=== PATIENT | female | born 1960 | race Caucasian/White ===

== ENCOUNTER 2017-09-15 10:53 | Inpatient (IN) | payer BC ==
[~2017-09-15] VITALS: Ht 162.6 cm; Wt 90.4 kg
[2017-09-15 15:41] LABS: BASOPHILS # (AUTO) 0.1 X10'3 (0-0.2); BASOPHILS % (AUTO) 1.4 % (0-1); EOSINOPHILS # (AUTO) 0.1 X10'3 (0-0.9); EOSINOPHILS % (AUTO) 2.6 % (0-6); LYMPHOCYTES # (AUTO) 1.9 X10'3 (1.1-4.8); LYMPHOCYTES % (AUTO) 34.1 % (21-51); MEAN CORPUSCULAR HEMOGLOBIN 32.6 PG (27.0-31.0); MEAN CORPUSCULAR HGB CONC 34.5 % (33.0-36.5); MEAN CORPUSCULAR VOLUME 94.4 FL (78-98); MONOCYTES # (AUTO) 0.6 X10'3 (0-0.9); MONOCYTES % (AUTO) 9.9 % (2-12); NEUTROPHILS # (AUTO) 2.9 X10'3 (1.8-7.7); PRE OP HEMATOCRIT 42.1 % (35.0-45.0); PRE OP HEMOGLOBIN 14.6 g/dL (12.0-16.0); PRE OP PLATELET COUNT 267 X10'3 (140-440); RED BLOOD COUNT 4.46 X10'6 (4.20-5.60); RED CELL DISTRIBUTION WIDTH 12.9 % (11.5-14.5)
[2017-09-15 15:57] LABS: ALBUMIN 3.7 G/DL (3.4-5.0); ALBUMIN/GLOBULIN RATIO 1.2 (1.1-1.5); ALKALINE PHOSPHATASE 94 IU/L (46-116); BLOOD UREA NITROGEN 13 MG/DL (7-18); BUN/CREATININE RATIO 15.5 (6.6-38.0); CALCIUM 9.1 MG/DL (8.5-10.1); CHLORIDE 106 MMOL/L (99-107); CREATININE 0.84 MG/DL (0.40-0.90); PRE OP ALT 29 U/L (30-65); PRE OP ANION GAP 8 (8-16); PRE OP AST 15 U/L (10-37); PRE OP BILIRUB, TOTAL 0.4 MG/DL (0.0-1.0); PRE OP GLUCOSE 93 MG/DL (70-104); PRE OP POTASSIUM 3.8 MMOL/L (3.4-5.1); PRE OP SODIUM 142 MMOL/L (135-145); TOTAL CARBON DIOXIDE 27.8 MMOL/L (24-32); TOTAL PROTEIN 6.7 G/DL (6.4-8.2); eGFR 70 ML/MIN
[2017-09-20] MEDS ORDERED: ALBU8.5H8 INH (14:48)
[2017-09-20] MEDS ORDERED: LEVO112T52 PO (14:48)
[2017-09-21] VITALS (19 sets, daily range): BP systolic 90–134; BP diastolic 54–85
[2017-09-21] MEDS ORDERED: ringers solution, lacted 1,000 ML IV SCH ×2 (05:00→09:39)
[2017-09-21] MEDS ORDERED: albuterol 2.5 MG/3 ML nebule NEB ONE (05:30)
[2017-09-21] MEDS ORDERED: gabapentin 300mg capsule PO ONE (05:30)
[2017-09-21] MEDS ORDERED: famotidine 20mg tablet PO ONE (05:30)
[2017-09-21] MEDS ORDERED: Cefazolin 2GM/100ML NS IVPB IV ONE (05:30)
[2017-09-21] MEDS ORDERED: oxyCODONE SR 10mg (sust. release) tab PO ONE (05:30)
[2017-09-21] MEDS ORDERED: tranexamic acid inj. 1,000 MG in normal saline 100ml IV soln 90 ML IV ONE ×2 (05:30→10:30)
[2017-09-21] MEDS ORDERED: metoclopramide 5 mg/ml inj IV ONE (05:30)
[2017-09-21] MEDS ORDERED: acetaminophen 325mg tablet PO ONE (05:30)
[2017-09-21] MEDS ORDERED: vancomycin inj 1,500 MG in normal saline 300ml IV soln IV ONE (05:30)
[2017-09-21] MEDS ORDERED: LIDOcaine 1% (10mg/ml) 2ml vial ONE (07:39)
[2017-09-21] MEDS ORDERED: vancomycin 1,000mg inj ONE (08:45)
[2017-09-21] MEDS ORDERED: ceFAZolin 1000mg inj ONE (08:45)
[2017-09-21] MEDS ORDERED: fentaNYL/PF 50MCG/1 ML 2ML syringe IV PRN ×2 (09:40)
[2017-09-21] MEDS ORDERED: ondansetron/PF 4mg/2ml inj IV PRN ×2 (09:40→13:00)
[2017-09-21] MEDS ORDERED: morphine 4 MG/ML inj SYRINge IV PRN ×2 (09:40)
[2017-09-21] MEDS ORDERED: labetalol 20mg/4ml (5mg/ml) syringe IV PRN (09:40)
[2017-09-21] MEDS ORDERED: hydrALAZINE 20mg/ml inj. IV PRN (09:40)
[2017-09-21] MEDS ORDERED: tetracaine 1% (10mg/ml) pres. free inj. ONE (09:41)
[2017-09-21] MEDS ORDERED: BUPIVAcaine 0.5% inj/PF 30 ml vial ONE (09:42)
[2017-09-21] MEDS ORDERED: MIDAZolam 1mg/ml 10ml vial ONE (09:44)
[2017-09-21] MEDS ORDERED: fentaNYL/PF 50MCG/1 ML 2ML syringe ONE (09:44)
[2017-09-21] MEDS ORDERED: morphine /PF 1mg/ml 10ml inj. ONE (09:44)
[2017-09-21] MEDS ORDERED: propofol inj 20 ML IV ONE ×4 (10:53→11:00)
[2017-09-21] MEDS ORDERED: diphenhydrAMINE 50 mg/ml inj ONE (10:56)
[2017-09-21] MEDS ORDERED: diphenhydrAMINE 50 mg/ml inj IV PRN (11:35)
[2017-09-21] MEDS ORDERED: Thrombin (Bovine) 5,000 unit vial TP ONE (11:40)
[2017-09-21] MEDS ORDERED: calcium chloride 100 MG/1 ML inj IV ONE (11:41)
[2017-09-21] MEDS ORDERED: magnesium hydroxide 30ml (MOM) UD suspension PO PRN (13:00)
[2017-09-21] MEDS ORDERED: acetaminophen 325mg tablet PO PRN (13:00)
[2017-09-21] MEDS ORDERED: HYDROmorphone 1 mg/ml syringe IV PRN ×2 (13:00)
[2017-09-21] MEDS ORDERED: bisacodyl 10mg suppository rectal RC PRN (13:00)
[2017-09-21] MEDS ORDERED: oxyCODONE IR 5mg (immed. release) tablet PO PRN (13:00)
[2017-09-21] MEDS ORDERED: diphenhydrAMINE 25mg capsule PO PRN ×2 (13:00)
[2017-09-21] MEDS: gabapentin 300mg capsule PO SCH ×2 (15:35→20:17)
[2017-09-21] MEDS: potassium cl 20mEq in 1/2 NS 1,000 ML IV SCH ×2 (15:35→20:18)
[2017-09-21] MEDS: acetaminophen 325mg tablet PO SCH ×2 (15:36→20:17)
[2017-09-21] MEDS ORDERED: tranexamic acid inj. 900 MG in normal saline 100ml IV soln 100 ML IV ONE (16:00)
[2017-09-21] MEDS: ceFAZolin 1GM/D5W- ADD-VANTAGE 50 ML IV SCH (17:12)
[2017-09-21] MEDS ORDERED: vancomycin/NS 1 GM ADD-VANTAGE 250 ML IV SCH (20:00)
[2017-09-21] MEDS: ondansetron/PF 4mg/2ml inj IV PRN (20:15)
[2017-09-21] MEDS: oxyCODONE IR 5mg (immed. release) tablet PO PRN (20:15)
[2017-09-21] MEDS: sennosides 8.6mg tablet PO SCH (20:17)
[2017-09-22] MEDS: ceFAZolin 1GM/D5W- ADD-VANTAGE 50 ML IV SCH (00:29)
[2017-09-22] MEDS ORDERED: albuterol 2.5 MG/3 ML nebule NEB PRN (00:55)
[2017-09-22] MEDS: oxyCODONE IR 5mg (immed. release) tablet PO PRN (02:11)
[2017-09-22] MEDS: acetaminophen 325mg tablet PO SCH ×2 (02:11→08:55)
[2017-09-22] MEDS: potassium cl 20mEq in 1/2 NS 1,000 ML IV SCH ×3 (04:59→20:41)
[2017-09-22 05:00] VITALS: BP 114/71
[2017-09-22 05:47] LABS: BASOPHILS % (AUTO) 0.7 % (0-1); EOSINOPHILS # (AUTO) 0.1 X10'3 (0-0.9); EOSINOPHILS % (AUTO) 1.2 % (0-6); HEMATOCRIT 37.1 % (35.0-45.0); HEMOGLOBIN 12.6 g/dl (12.0-16.0); LYMPHOCYTES # (AUTO) 1.2 X10'3 (1.1-4.8); LYMPHOCYTES % (AUTO) 16.1 % (21-51); MEAN CORPUSCULAR HEMOGLOBIN 32.2 PG (27.0-31.0); MEAN CORPUSCULAR HGB CONC 34.1 % (33.0-36.5); MEAN CORPUSCULAR VOLUME 94.5 FL (78-98); MEAN PLATELET VOLUME 8.3 FL (7.4-10.4); MONOCYTES # (AUTO) 0.7 X10'3 (0-0.9); NEUTROPHILS # (AUTO) 5.3 X10'3 (1.8-7.7); PLATELET COUNT 217 X10'3 (140-440); RED BLOOD COUNT 3.93 X10'6 (4.20-5.60); WHITE BLOOD COUNT 7.3 X10'3 (4.5-11.0)
[2017-09-22] MEDS: ondansetron/PF 4mg/2ml inj IV PRN ×2 (07:13→12:57)
[2017-09-22 08:00] VITALS: BP 122/69
[2017-09-22] MEDS: enoxaparin 40mg/0.4ml syringe SQ SCH (08:55)
[2017-09-22] MEDS: gabapentin 300mg capsule PO SCH ×3 (08:55→20:41)
[2017-09-22] MEDS: levoTHYROXINE 112mcg tablet PO SCH (08:55)
[2017-09-22 10:00] VITALS: BP 122/69
[2017-09-22] MEDS ORDERED: oxyCODONE/APAP 10/325mg tablet PO PRN (12:15)
[2017-09-22] MEDS ORDERED: Protein Shake (high protein) 240ml (8oz) cup PO SCH (12:30)
[2017-09-22] MEDS: oxyCODONE/APAP 10/325mg tablet PO PRN ×3 (12:52→20:41)
[2017-09-22 14:00] VITALS: BP 132/70
[2017-09-22 18:00] VITALS: BP 129/69
[2017-09-22] MEDS: celeCOXIB 100mg capsule PO SCH (20:41)
[2017-09-22] MEDS: sennosides 8.6mg tablet PO SCH (21:00)
[2017-09-22 22:00] VITALS: BP 130/46
[2017-09-23] MEDS: oxyCODONE/APAP 10/325mg tablet PO PRN ×2 (04:51→08:34)
[2017-09-23 05:00] VITALS: BP 131/65
[2017-09-23 05:57] LABS: BASOPHILS % (AUTO) 0.3 % (0-1); EOSINOPHILS # (AUTO) 0.1 X10'3 (0-0.9); EOSINOPHILS % (AUTO) 1.2 % (0-6); HEMATOCRIT 33.9 % (35.0-45.0); HEMOGLOBIN 11.7 g/dl (12.0-16.0); LYMPHOCYTES # (AUTO) 1.2 X10'3 (1.1-4.8); LYMPHOCYTES % (AUTO) 14.3 % (21-51); MEAN CORPUSCULAR HEMOGLOBIN 32.7 PG (27.0-31.0); MEAN CORPUSCULAR HGB CONC 34.5 % (33.0-36.5); MEAN CORPUSCULAR VOLUME 94.9 FL (78-98); MEAN PLATELET VOLUME 8.1 FL (7.4-10.4); MONOCYTES # (AUTO) 0.8 X10'3 (0-0.9); MONOCYTES % (AUTO) 9.5 % (2-12); NEUTROPHILS # (AUTO) 6.3 X10'3 (1.8-7.7); NEUTROPHILS % (AUTO) 74.7 % (42-75); PLATELET COUNT 186 X10'3 (140-440); RED BLOOD COUNT 3.58 X10'6 (4.20-5.60); RED CELL DISTRIBUTION WIDTH 12.8 % (11.5-14.5); WHITE BLOOD COUNT 8.4 X10'3 (4.5-11.0)
[2017-09-23] MEDS: potassium cl 20mEq in 1/2 NS 1,000 ML IV SCH (06:40)
[2017-09-23] MEDS: ondansetron/PF 4mg/2ml inj IV PRN (07:08)
[2017-09-23] MEDS: levoTHYROXINE 112mcg tablet PO SCH (08:33)
[2017-09-23] MEDS: gabapentin 300mg capsule PO SCH ×3 (08:34→20:01)
[2017-09-23] MEDS: celeCOXIB 100mg capsule PO SCH ×2 (08:34→20:01)
[2017-09-23] MEDS: enoxaparin 40mg/0.4ml syringe SQ SCH (08:35)
[2017-09-23 10:00] VITALS: BP 116/70
[2017-09-23 18:00] VITALS: BP 132/68
[2017-09-23] MEDS: sennosides 8.6mg tablet PO SCH (20:02)
[2017-09-23] MEDS: acetaminophen 325mg tablet PO PRN (20:02)
[2017-09-23 22:00] VITALS: BP 123/63
[2017-09-24] MEDS: acetaminophen 325mg tablet PO PRN (01:32)
[2017-09-24 06:04] LABS: BASOPHILS % (AUTO) 0.2 % (0-1); EOSINOPHILS # (AUTO) 0.2 X10'3 (0-0.9); EOSINOPHILS % (AUTO) 1.8 % (0-6); HEMATOCRIT 34.3 % (35.0-45.0); HEMOGLOBIN 11.8 g/dl (12.0-16.0); LYMPHOCYTES # (AUTO) 1.7 X10'3 (1.1-4.8); LYMPHOCYTES % (AUTO) 18.6 % (21-51); MEAN CORPUSCULAR HEMOGLOBIN 32.6 PG (27.0-31.0); MEAN CORPUSCULAR HGB CONC 34.3 % (33.0-36.5); MEAN CORPUSCULAR VOLUME 95.2 FL (78-98); MEAN PLATELET VOLUME 8.4 FL (7.4-10.4); MONOCYTES # (AUTO) 0.7 X10'3 (0-0.9); NEUTROPHILS # (AUTO) 6.6 X10'3 (1.8-7.7); NEUTROPHILS % (AUTO) 71.4 % (42-75); PLATELET COUNT 219 X10'3 (140-440); RED BLOOD COUNT 3.61 X10'6 (4.20-5.60); RED CELL DISTRIBUTION WIDTH 12.9 % (11.5-14.5); WHITE BLOOD COUNT 9.2 X10'3 (4.5-11.0)
[2017-09-24] MEDS: levoTHYROXINE 112mcg tablet PO SCH (09:38)
[2017-09-24] MEDS: celeCOXIB 100mg capsule PO SCH (09:38)
[2017-09-24] MEDS: gabapentin 300mg capsule PO SCH (09:38)
[2017-09-24] MEDS: enoxaparin 40mg/0.4ml syringe SQ SCH (09:39)
[2017-09-24] MEDS: ondansetron/PF 4mg/2ml inj IV PRN (09:39)
[2017-09-24] MEDS: oxyCODONE/APAP 10/325mg tablet PO PRN (09:40)
== END 2017-09-24 10:30 | disposition home or self-care (01) | DRG 470 ==
LOC: EDSTATUS 14:30 → PAS IN 09-21 07:22 → EDSTATUS 09-21 10:30 → ORTHO 4S 09-21 14:55
PROVIDERS: ADMIT Orthopaedic Surgery; ATTEND Orthopaedic Surgery
PROC: 0SR906Z Replacement of Right Hip Joint with Oxidized Zirconium on Polyethylene Synthetic Substitute, Open Approach (ICD-10-PCS; principal; 2017-09-21 10:10)
DX: M16.11 Unilateral primary osteoarthritis, right hip (principal); D62 Acute posthemorrhagic anemia; E03.9 Hypothyroidism, unspecified
CPT/HCPCS: 0232T; Z7506; 36415; 71046; 72170; 80053; 84443; 85025; 85610; 85730; 86885; 86900; 86901; 87070; 97110; 97116; 97162; 97530; A6258; A6449; A7000; C1758; C1776; J0690; J1170; J1200; J1650; J2250; J2274; J2405; J2704; J2765; J3010; J3370; J3490; J7030; J7120

== ENCOUNTER 2019-03-07 08:50 | Inpatient (IN) | payer BC ==
[2019-03-07] VITALS (15 sets, daily range): BP systolic 103–147; BP diastolic 53–89
[~2019-03-07] VITALS: Ht 162.6 cm; Wt 88.0 kg
[~2019-03-07 08:50] MED LIST: CELE-85 PO; CHOL10002 PO; ESTR1TAB19 PO; LEVO112T52 PO; SIMV10TA6 PO; TRAZ-251 PO; [UNRECOGNIZED DRUG - OTHER]
[2019-03-07] MEDS ORDERED: famotidine 20mg tablet PO ONE (10:00)
[2019-03-07] MEDS ORDERED: mupirocin 2% nasal ointment 1gm UD NS ONE (10:00)
[2019-03-07] MEDS ORDERED: ringers solution, lacted 1,000 ML IV SCH ×2 (10:00→16:16)
[2019-03-07] MEDS ORDERED: cefazolin/dext.iso 2gm/50ml 50 ML IV ONE (10:00)
[2019-03-07] MEDS ORDERED: tranexamic acid inj. 1,000 MG in normal saline 100 ML IV ONE (10:00)
[2019-03-07] MEDS ORDERED: vancomycin inj 1,500 MG in normal saline 300ml IV soln IV ONE (10:00)
[2019-03-07 13:55] LABS: BASOPHILS % (AUTO) 0.4 % (0-1); EOSINOPHILS # (AUTO) 0.1 X10'3 (0-0.9); EOSINOPHILS % (AUTO) 1.3 % (0-6); LYMPHOCYTES # (AUTO) 1.6 X10'3 (1.1-4.8); LYMPHOCYTES % (AUTO) 38.2 % (21-51); MEAN CORPUSCULAR HEMOGLOBIN 32.9 PG (27.0-31.0); MEAN CORPUSCULAR HGB CONC 34.1 g/dL (33.0-36.5); MEAN CORPUSCULAR VOLUME 96.7 FL (78-98); MEAN PLATELET VOLUME 8.4 FL (7.4-10.4); MONOCYTES # (AUTO) 0.4 X10'3 (0-0.9); MONOCYTES % (AUTO) 9.8 % (2-12); NEUTROPHILS # (AUTO) 2.1 X10'3 (1.8-7.7); NEUTROPHILS % (AUTO) 50.3 % (42-75); PRE OP HEMATOCRIT 45.3 % (35.0-45.0); PRE OP HEMOGLOBIN 15.4 g/dL (12.0-16.0); PRE OP PLATELET COUNT 237 X10'3 (140-440); RED BLOOD COUNT 4.68 X10'6 (4.20-5.60); RED CELL DISTRIBUTION WIDTH 13.2 % (11.5-14.5)
[2019-03-07 14:16] LABS: ALBUMIN 4.3 G/DL (3.4-5.0); ALBUMIN/GLOBULIN RATIO 1.3 (1.1-1.5); ALKALINE PHOSPHATASE 91 IU/L (46-116); BLOOD UREA NITROGEN 14 MG/DL (7-18); BUN/CREATININE RATIO 17.1 (6.6-38.0); CALCIUM 9.2 MG/DL (8.5-10.1); CHLORIDE 107 MMOL/L (99-107); CREATININE 0.82 MG/DL (0.40-0.90); PRE OP ALT 32 U/L (30-65); PRE OP ANION GAP 10 (8-16); PRE OP AST 17 U/L (10-37); PRE OP BILIRUB, TOTAL 0.8 MG/DL (0.0-1.0); PRE OP GLUCOSE 87 MG/DL (70-104); PRE OP POTASSIUM 4.1 MMOL/L (3.4-5.1); PRE OP SODIUM 143 MMOL/L (135-145); TOTAL CARBON DIOXIDE 26.1 MMOL/L (24-32); TOTAL PROTEIN 7.5 G/DL (6.4-8.2); eGFR 72 ML/MIN
[2019-03-07] MEDS ORDERED: vancomycin 1,000mg inj ONE (14:18)
[2019-03-07] MEDS ORDERED: ceFAZolin 1000mg inj ONE (14:18)
[2019-03-07] MEDS ORDERED: morphine /PF 1mg/ml 10ml inj. ONE (14:54)
[2019-03-07] MEDS ORDERED: fentaNYL/PF 50MCG/1 ML 2ML syringe ONE (14:54)
[2019-03-07] MEDS ORDERED: MIDAZolam 1mg/ml 10ml vial ONE (14:54)
[2019-03-07] MEDS ORDERED: BUPIVAcaine/PF 7.5mg/ml (0.75%) 10ml vial ONE (15:56)
[2019-03-07] MEDS ORDERED: propofol inj 20 ML IV ONE (15:56)
[2019-03-07] MEDS ORDERED: diphenhydrAMINE 50 mg/ml inj ONE (15:56)
[2019-03-07] MEDS ORDERED: LIDOcaine 1%/PF 5ML 10 MG/ML VIAL ONE (15:56)
[2019-03-07] MEDS ORDERED: naloxone 2mg/2ml inj 1.6 MG in normal saline 500ml IV soln 500 ML IV PRN (16:16)
[2019-03-07] MEDS ORDERED: morphine 4 MG/ML inj SYRINge IV PRN ×2 (16:20)
[2019-03-07] MEDS ORDERED: proCHLORperazine 10 MG/2 ml inj IV PRN (16:20)
[2019-03-07] MEDS ORDERED: diphenhydrAMINE 50 mg/ml inj IV PRN (16:20)
[2019-03-07] MEDS ORDERED: ondansetron/PF 4mg/2ml inj IV PRN ×3 (16:20→16:50)
[2019-03-07] MEDS ORDERED: meperidine/PF 25mg/ml syringe IV PRN ×3 (16:20)
[2019-03-07] MEDS ORDERED: diphenhydrAMINE 25mg capsule PO PRN (16:50)
[2019-03-07] MEDS ORDERED: HYDROmorphone 1 mg/ml syringe IV PRN (16:50)
[2019-03-07] MEDS ORDERED: HYDROmorphone inj. 0.5 MG/0.5 ML DISP.SYRIN IV PRN (16:50)
[2019-03-07] MEDS ORDERED: magnesium hydroxide 30ml (MOM) UD suspension PO PRN (16:50)
[2019-03-07] MEDS ORDERED: acetaminophen 325mg tablet PO PRN (16:50)
[2019-03-07] MEDS ORDERED: oxyCODONE IR 5mg (immed. release) tablet PO PRN ×2 (16:50)
[2019-03-07] MEDS ORDERED: bisacodyl 10mg suppository rectal RC PRN (16:50)
--- NOTE | 2019-03-07 17:10 | NUR ---
Received from OR via BED , accompanied by Anesthesiologist DR KEVIN and report given by Anesthesiolgist. PATIENT WAKING UP, DENIES PAIN, V/S WNL, NEUROVASCULAR CHECKS INTACT, 20G AND 18GPIV LUE , BELKIS DRESSING TO LEFT HIP CDI W/ COLD POWDER PACK AND IMMOBILIZER WEDGE BRACE W/ SCD ON. F/C DRAINING CLEAR YELLOW URINE. SENSATION T-10 .
--- NOTE | 2019-03-07 18:00 | NUR ---
PATIENT A&OX4, DENIES PAIN, V/S WNL, NEUROVASCULAR CHECKS INTACT, 20G AND 18G PIV LUE , BELKIS DRESSING TO LEFT HIP CDI W/ COLD POWDER PACK AND IMMOBILIZER BRACE W/ SCD ON. F/C DRAINING CLEAR YELLOW URINE. SENSATION T-10. PATIENT TAKEN TO 4024B WITH ALL BELONGINGS AND HOOKED UP TO MONITORS IN ROOM AND REPORT GIVEN TO PLASTIC BATTERY ASSEMBLER WHO HAS TAKEN OVER PATIENT CARE.
[2019-03-07] MEDS ORDERED: vancomycin/NS 1 GM ADD-VANTAGE 250 ML IV SCH (20:00)
[2019-03-07] MEDS ORDERED: tranexamic acid inj. 880 MG in normal saline 100ml IV soln 100 ML IV ONE (20:00)
[2019-03-07] MEDS: potassium cl 20mEq in 1/2 NS 1,000 ML IV SCH (20:54)
[2019-03-07] MEDS: acetaminophen 325mg tablet PO SCH (20:55)
[2019-03-07] MEDS: gabapentin 300mg capsule PO SCH (20:55)
[2019-03-07] MEDS: sennosides 8.6mg tablet PO SCH (20:55)
[2019-03-07] MEDS: ceFAZolin 1GM/D5W- ADD-VANTAGE 50 ML IV SCH (23:49)
[2019-03-08] MEDS: acetaminophen 325mg tablet PO SCH ×4 (01:33→20:16)
[2019-03-08] MEDS: diphenhydrAMINE 25mg capsule PO PRN ×2 (01:35→09:10)
[2019-03-08 02:00] VITALS: BP 115/68
[2019-03-08 05:00] VITALS: BP 109/72
[2019-03-08] MEDS: potassium cl 20mEq in 1/2 NS 1,000 ML IV SCH ×3 (05:25→15:42)
--- NOTE | 2019-03-08 06:14 | NUR ---
Report given to Dominic SHEIKH.
[2019-03-08 06:20] LABS: BASOPHILS % (AUTO) 0.5 % (0-1); EOSINOPHILS % (AUTO) 0.2 % (0-6); HEMATOCRIT 41.3 % (35.0-45.0); LYMPHOCYTES # (AUTO) 0.8 X10'3 (1.1-4.8); LYMPHOCYTES % (AUTO) 10.8 % (21-51); MEAN CORPUSCULAR HEMOGLOBIN 32.9 PG (27.0-31.0); MEAN CORPUSCULAR HGB CONC 33.9 g/dL (33.0-36.5); MEAN CORPUSCULAR VOLUME 96.8 FL (78-98); MEAN PLATELET VOLUME 8.7 FL (7.4-10.4); MONOCYTES # (AUTO) 0.6 X10'3 (0-0.9); MONOCYTES % (AUTO) 8.6 % (2-12); NEUTROPHILS # (AUTO) 5.9 X10'3 (1.8-7.7); NEUTROPHILS % (AUTO) 79.9 % (42-75); PLATELET COUNT 197 X10'3 (140-440); RED BLOOD COUNT 4.26 X10'6 (4.20-5.60); RED CELL DISTRIBUTION WIDTH 12.7 % (11.5-14.5); WHITE BLOOD COUNT 7.4 X10'3 (4.5-11.0)
[2019-03-08 06:31] LABS: ANION GAP 9 (8-16); CHLORIDE 109 MMOL/L (99-107); POTASSIUM 4.3 MMOL/L (3.5-5.1); SODIUM 141 MMOL/L (135-145)
--- NOTE | 2019-03-08 06:41 | NUR ---
Patient in room ORTHO 4024. I have received report from Rita SHEIKH and had the opportunity to ask questions and assume patient care.
[2019-03-08] MEDS: gabapentin 300mg capsule PO SCH ×3 (07:35→20:14)
[2019-03-08] MEDS: levoTHYROXINE 112mcg tablet PO SCH (07:36)
[2019-03-08] MEDS: vitamin D (cholecalciferol) 1,000 unit tablet PO SCH (07:38)
[2019-03-08] MEDS: estradiol 1mg tablet PO SCH (07:39)
[2019-03-08] MEDS: enoxaparin 40mg/0.4ml syringe SQ SCH (07:42)
[2019-03-08] MEDS: neomy sulf/bacitrac zn/polymixin b oint 14.2 gm tube TP SCH ×3 (07:45→20:16)
[2019-03-08] MEDS: ceFAZolin 1GM/D5W- ADD-VANTAGE 50 ML IV SCH (07:45)
[2019-03-08] MEDS ORDERED: [UNRECOGNIZED DRUG - OTHER] SCH (08:00)
[2019-03-08] MEDS ORDERED: celeCOXIB 100mg capsule PO SCH (08:00)
[2019-03-08] MEDS ORDERED: scopolamine 1.5mg patch.TD72 TD ONE (09:10)
[2019-03-08 10:00] VITALS: BP 108/69
[2019-03-08] MEDS: traMADol 50MG tablet PO PRN ×2 (11:34→16:22)
--- NOTE | 2019-03-08 11:57 | NUR ---
Patient report given, to KORI Alfaro.
[2019-03-08] MEDS ORDERED: TRAM50TA2 PO (12:46)
[2019-03-08 14:00] VITALS: BP 104/61
[2019-03-08 18:00] VITALS: BP 116/72
--- NOTE | 2019-03-08 18:10 | NUR ---
Received report from Dominic SHEIKH. assumed care of patient.
--- NOTE | 2019-03-08 18:10 | NUR ---
Problems reprioritized. Patient report given, questions answered & plan of care reviewed with Carmella RN.
[2019-03-08] MEDS: celeCOXIB 100mg capsule PO SCH (20:14)
[2019-03-08] MEDS: atorvastatin 10mg tablet PO SCH (20:15)
[2019-03-08] MEDS: traZODone 50mg tablet PO SCH (20:15)
[2019-03-08] MEDS: sennosides 8.6mg tablet PO SCH (20:16)
[2019-03-08 22:00] VITALS: BP 115/66
[2019-03-09] MEDS: potassium cl 20mEq in 1/2 NS 1,000 ML IV SCH (00:46)
[2019-03-09] MEDS: acetaminophen 325mg tablet PO SCH ×3 (02:05→14:02)
--- NOTE | 2019-03-09 03:54 | NUR ---
pt hasn't voided on my shift and stated that she hasn't voided since they took her camarena catheter out. checked patient with bladder scan at 01:30. 774 mls in. Straight cath patient and had 1000ml out. will continue to monitor patient.
[2019-03-09 05:23] LABS: BASOPHILS % (AUTO) 0.5 % (0-1); EOSINOPHILS # (AUTO) 0.1 X10'3 (0-0.9); EOSINOPHILS % (AUTO) 0.8 % (0-6); HEMATOCRIT 35.9 % (35.0-45.0); HEMOGLOBIN 12.5 g/dl (12.0-16.0); LYMPHOCYTES # (AUTO) 1.3 X10'3 (1.1-4.8); MEAN CORPUSCULAR HEMOGLOBIN 33.6 PG (27.0-31.0); MEAN CORPUSCULAR HGB CONC 34.9 g/dL (33.0-36.5); MEAN CORPUSCULAR VOLUME 96.3 FL (78-98); MEAN PLATELET VOLUME 8.8 FL (7.4-10.4); MONOCYTES # (AUTO) 0.9 X10'3 (0-0.9); MONOCYTES % (AUTO) 10.7 % (2-12); PLATELET COUNT 164 X10'3 (140-440); RED BLOOD COUNT 3.73 X10'6 (4.20-5.60); RED CELL DISTRIBUTION WIDTH 12.6 % (11.5-14.5); WHITE BLOOD COUNT 8.4 X10'3 (4.5-11.0)
[2019-03-09] MEDS: traMADol 50MG tablet PO PRN ×4 (05:28→20:43)
[2019-03-09 06:00] VITALS: BP 112/62
--- NOTE | 2019-03-09 06:33 | NUR ---
Gave report to Dominic SHEIKH.
--- NOTE | 2019-03-09 06:42 | NUR ---
Patient in room ORTHO 4024. I have received report from Carmella SHEIKH and had the opportunity to ask questions and assume patient care.
[2019-03-09] MEDS: vitamin D (cholecalciferol) 1,000 unit tablet PO SCH (07:41)
[2019-03-09] MEDS: neomy sulf/bacitrac zn/polymixin b oint 14.2 gm tube TP SCH ×4 (07:41→20:50)
[2019-03-09] MEDS: gabapentin 300mg capsule PO SCH ×3 (07:41→20:39)
[2019-03-09] MEDS: levoTHYROXINE 112mcg tablet PO SCH (07:41)
[2019-03-09] MEDS: celeCOXIB 100mg capsule PO SCH ×2 (07:41→20:39)
[2019-03-09] MEDS: enoxaparin 40mg/0.4ml syringe SQ SCH (07:42)
[2019-03-09] MEDS: estradiol 1mg tablet PO SCH (07:43)
[2019-03-09 10:00] VITALS: BP 106/65
--- NOTE | 2019-03-09 15:58 | NUR ---
Problems reprioritized. Patient report given, questions answered & plan of care reviewed with Laurel SHEIKH.
[2019-03-09] MEDS ORDERED: acetaminophen 325mg tablet PO PRN (16:50)
[2019-03-09 17:00] VITALS: BP 120/64
--- NOTE | 2019-03-09 18:21 | NUR ---
Problems reprioritized. Patient report given, questions answered & plan of care reviewed with Carmella.
--- NOTE | 2019-03-09 18:30 | NUR ---
Received report from Laurel SHEIKH. assumed care of patient.
[2019-03-09] MEDS: traZODone 50mg tablet PO SCH (20:39)
[2019-03-09] MEDS: atorvastatin 10mg tablet PO SCH (20:40)
[2019-03-09] MEDS: sennosides 8.6mg tablet PO SCH (20:40)
[2019-03-09 22:00] VITALS: BP 111/64
[2019-03-10] MEDS: traMADol 50MG tablet PO PRN ×3 (04:53→12:36)
[2019-03-10 05:10] LABS: BASOPHILS % (AUTO) 0.2 % (0-1); EOSINOPHILS # (AUTO) 0.1 X10'3 (0-0.9); EOSINOPHILS % (AUTO) 1.7 % (0-6); HEMATOCRIT 33.7 % (35.0-45.0); HEMOGLOBIN 11.6 g/dl (12.0-16.0); LYMPHOCYTES # (AUTO) 1.4 X10'3 (1.1-4.8); LYMPHOCYTES % (AUTO) 18.2 % (21-51); MEAN CORPUSCULAR HEMOGLOBIN 33.4 PG (27.0-31.0); MEAN CORPUSCULAR HGB CONC 34.5 g/dL (33.0-36.5); MEAN CORPUSCULAR VOLUME 96.9 FL (78-98); MEAN PLATELET VOLUME 8.7 FL (7.4-10.4); MONOCYTES # (AUTO) 0.8 X10'3 (0-0.9); MONOCYTES % (AUTO) 9.8 % (2-12); NEUTROPHILS # (AUTO) 5.5 X10'3 (1.8-7.7); NEUTROPHILS % (AUTO) 70.1 % (42-75); PLATELET COUNT 189 X10'3 (140-440); RED BLOOD COUNT 3.48 X10'6 (4.20-5.60); WHITE BLOOD COUNT 7.8 X10'3 (4.5-11.0)
[2019-03-10 06:00] VITALS: BP 107/54
--- NOTE | 2019-03-10 06:00 | NUR ---
Gave report to Dominic SHEIKH.
--- NOTE | 2019-03-10 06:45 | NUR ---
Patient in room ORTHO 4024. I have received report from Carmella SHEIKH and had the opportunity to ask questions and assume patient care.
[2019-03-10] MEDS: neomy sulf/bacitrac zn/polymixin b oint 14.2 gm tube TP SCH (07:39)
[2019-03-10] MEDS: enoxaparin 40mg/0.4ml syringe SQ SCH (07:40)
[2019-03-10] MEDS: celeCOXIB 100mg capsule PO SCH (07:40)
[2019-03-10] MEDS: levoTHYROXINE 112mcg tablet PO SCH (07:40)
[2019-03-10] MEDS: vitamin D (cholecalciferol) 1,000 unit tablet PO SCH (07:40)
[2019-03-10] MEDS: estradiol 1mg tablet PO SCH (07:40)
[2019-03-10] MEDS: gabapentin 300mg capsule PO SCH ×2 (07:40→12:35)
[2019-03-10 10:00] VITALS: BP 142/74
--- NOTE | 2019-03-10 12:45 | NUR ---
safe DC with spouse. all personal items with patient
== END 2019-03-10 12:45 | disposition home or self-care (01) | DRG 470 ==
LOC: PAS IN 12:14 → EDSTATUS 15:00 → ORTHO 4S 18:00
PROVIDERS: ADMIT Orthopaedic Surgery; ATTEND Orthopaedic Surgery
PROC: 0SRB06A Replacement of Left Hip Joint with Oxidized Zirconium on Polyethylene Synthetic Substitute, Uncemented, Open Approach (ICD-10-PCS; principal; 2019-03-07 14:50)
DX: M16.12 Unilateral primary osteoarthritis, left hip (principal); D62 Acute posthemorrhagic anemia; E03.9 Hypothyroidism, unspecified; E78.5 Hyperlipidemia, unspecified; F32.9 Major depressive disorder, single episode, unspecified; Z96.641 Presence of right artificial hip joint; J45.909 Unspecified asthma, uncomplicated; E66.01 Morbid (severe) obesity due to excess calories; Z91.010 Allergy to peanuts; Z91.018 Allergy to other foods; Z79.899 Other long term (current) drug therapy; Z79.890 Hormone replacement therapy; Z87.891 Personal history of nicotine dependence; Z90.710 Acquired absence of both cervix and uterus; Z68.33 Body mass index [BMI] 33.0-33.9, adult
CPT/HCPCS: Z7506; Z7508; 36415; 72170; 80051; 80053; 84443; 85025; 86885; 86900; 86901; 87081; 93005; 97110; 97116; 97162; 97530; A4215; A4615; A4618; A7000; C1758; C1776; C9250; G0378; J0690; J1170; J1200; J1650; J2250; J2270; J2704; J3010; J3370; J3480; J3490; J7120; Q0163